=== PATIENT | female | born 1950 | race Caucasian/White ===

== ENCOUNTER 2016-05-28 14:20 | Emergency (ER) | payer MEDICARE, OTHER ==
[~2016-05-28 14:20] MED LIST: ASPIRIN81 M2; BACTRIM DS TABL1 TA1 PO; DELTASONE20 MG PO; METOPROLOL SUCC25 MG PO; ZESTRIL40 MG PO
== END 2016-05-28 15:50 | disposition home or self-care (01) ==
LOC: SED 14:20
DX: J02.9 Acute pharyngitis, unspecified (principal); I10 Essential (primary) hypertension; F31.9 Bipolar disorder, unspecified; F41.9 Anxiety disorder, unspecified; Z88.5 Allergy status to narcotic agent
CPT/HCPCS: 87651; 99282

== ENCOUNTER 2016-06-10 15:46 | Emergency (ER) | payer MEDICARE, OTHER ==
--- NOTE | ~2016-06-10 | CR63 ---
[facility] A Service of [facility] & [facility] RADIOLOGY TEXT RESULTS PATIENT: ARACELI CHAIDEZ LOCATION: SED : 50 UNIT #: [id number] AGE: [address]: CLEMENTE EDWARD SEX: F ORDER DR: [id number] [place] [id number] E MR#: [id number] Acc #: [id number] NAME: ARACELI CHAIDEZ : 1950 SEX: F STUDY DATE/TIME: 06/10/2016 15:23 UNIT: SED ROOM: STUDY DESCRIPTION: CR Chest 2 View Attending Physician: Clemente Edward Ordering Physician: Staff Doctor Not On Primary Care Physician: Mia Holcomb M.D. MEDICAL IMAGING REPORT This report is preliminary unless electronic signature is present. EXAM Chest x-ray 06/10 HISTORY Productive cough with fever, congestion, chills that started one week ago. History of smoking. FINDINGS PA and lateral views of the chest are compared with 09/20/2011. Cardiac and mediastinal contours are normal. There is emphysema. There is no pneumothorax. The lungs are clear. IMPRESSION Emphysema. No active disease. Dictated by... Jona Thompson Jr., M.D. THIS IS AN ELECTRONICALLY VERIFIED REPORT Jona Thompson Jr., M.D. at 06/11/2016 8:48 PM PRECIOUS/teresa TD: 06/10/2016 17:45 JOB #: [id number] MEDICAL IMAGING REPORT Page 1 of 1
[2016-06-10 16:02] LABS: INFLUENZA A NEG (NEG); INFLUENZA B NEG (NEG)
== END 2016-06-10 16:57 | disposition home or self-care (01) ==
LOC: SED 15:46
PROVIDERS: Nurse Practitioner
DX: J06.9 Acute upper respiratory infection, unspecified (principal); J45.909 Unspecified asthma, uncomplicated; I10 Essential (primary) hypertension; Z87.891 Personal history of nicotine dependence; Z98.890 Other specified postprocedural states; Z86.79 Personal history of other diseases of the circulatory system
CPT/HCPCS: 71020; 87804; 99283